=== PATIENT | male | born 1990 | race African-American/Black ===

== ENCOUNTER 2018-01-01 20:50 | Inpatient (IN) | payer OTHER ==
[~2018-01-01 20:50] MED LIST: PHOS667C PO
--- NOTE | 2018-01-01 23:45 | HHI.HP ---
[facility] Service Critical Care Medicine Primary Care Physician Unknown Admission Diagnosis Diagnosis: Travel History International Travel<30 Days: No Contact w/Intl Traveler <30 Da: No Traveled to Known Affected Are: No History of Present Illness 27-year-old gentleman with history of end-stage renal disease on dialysis Saturday, hypertensive nephrosclerosis, status post AV fistula placement, hypertension, history of lower extremity DVT, presented to [facility] with generalized weakness, malaise, lethargy, nausea and vomiting after heme is dialysis on Saturday. He denies any chest pain, fevers , cough, or shortness of breath. In the emergency department his labs were acceptable and he was transferred here for high level of care. Review of Systems Constitutional: DENIES: Diaphoretic episodes, Fatigue, Fever, Weight gain, Weight loss, Chills, Dizziness, Change in appetite, Night Sweats Endocrine: DENIES: Heat/cold intolerance, Polydipsia, Polyuria, Polyphagia Eyes: COMPLAINS OF: Blurred vision, Diplopia, Eye inflammation, Eye pain, Vision loss, Photosensitivity, Double Vision Ears, nose, mouth, throat: DENIES: Tinnitus, Hearing loss, Vertigo, Nasal discharge, Oral lesions, Throat pain, Hoarseness, Ear Pain, Running Nose, Epistaxis, Sinus Pain, Toothache, Odynophagia Cardiovascular: DENIES: Chest pain, Palpitations, Syncope, Dyspnea on Exertion , PND, Lower Extremity Edema, Orthopnea, Claudication Gastrointestinal: DENIES: Abdominal pain, Black stools, Bloody stools, Constipation, Diarrhea, Nausea, Vomiting, Difficulty Swallowing, Anorexia Genitourinary: DENIES: Sexual dysfunction, Urinary frequency, Urinary incontinence, Urgency, Hematuria, Dysuria, Nocturia, Penile Discharge, Testicular Pain, Testicular Swelling Musculoskeletal: DENIES: Joint pain, Muscle aches, Stiffness, Joint Swelling, Back pain, Neck pain Integumentary: DENIES: Abnormal pigmentation, Nail changes, Pruritus, Rash Hematologic/lymphatic: DENIES: Bruising, Lymphadenopathy Immunologic/allergic: DENIES: Eczema, Urticaria Neurologic: DENIES: Abnormal gait, Headache, Localized weakness, Paresthesias, Seizures, Speech Problems, Tremor, Poor Balance Psychiatric: DENIES: Anxiety, Confusion, Mood changes, Depression, Hallucinations, Agitation, Suicidal Ideation, Homicidal Ideation, Delusions Past Family Social History Allergies: Coded Allergies: ceftazidime (Unverified Allergy, Intermediate, RASH, 05/21/17) vancomycin (Verified Allergy, Unknown, 01/01/18) Past Medical History End-stage renal disease on dialysis Saturday Hypertension Past Surgical History HD Fistula placement Reported Medications Reported Meds & Active Scripts Active Reported Phoslo (Calcium Acetate) 667 Mg Cap 667 Mg PO TID Active Ordered Medications Current Medications Medications (Trade) Dose Ordered Sig/Eda Route PRN Reason Start Time Stop Time Status Last Admin Dose Admin Sodium Chloride (NS Flush) 2 ml UNSCH PRN IV FLUSH FLUSH AFTER USING IV ACCESS 01/02/18 00:45 Sodium Chloride (NS Flush) 2 ml BID IV FLUSH 01/02/18 09:00 Acetaminophen (Tylenol) 650 mg Q6H PRN PO PAIN 1-5 AND/OR FEVER >101F 01/02/18 00:45 Hydromorphone HCl (Dilaudid Pf Inj) 1 mg Q4H PRN IV PUSH PAIN SCALE 6 TO 10 01/02/18 00:45 Famotidine (Pepcid Inj) 20 mg Q12HR IV PUSH 01/02/18 09:00 Ondansetron HCl (Zofran Inj) 4 mg Q6H PRN IV PUSH NAUSEA OR VOMITING 01/02/18 00:45 Temazepam (Restoril) 15 mg HS PRN PO INSOMNIA 01/02/18 00:45 Albuterol/ Ipratropium (Duoneb Neb) 1 ampule Q2HR NEB PRN INH WHEEZING 01/02/18 00:45 Miscellaneous Information 1 Q361D XX 01/02/18 00:45 Chlorhexidine Gluconate (Chlorhexidine 2% Cloth) 3 pack Taper DAILY@04 TOP 01/02/18 04:00 12/29/18 03:59 Chlorhexidine Gluconate (Chlorhexidine 2% Cloth) 3 pack UNSCH PRN TOP HYGIENIC CARE 01/02/18 00:45 Senna/Docusate Sodium (Jammie-Colace) 1 tab BID PO 01/02/18 09:00 Magnesium Hydroxide (Milk Of Magnesia Liq) 30 ml Q12H PRN PO Mild constipation 01/02/18 00:45 Sennosides (Senokot) 17.2 mg Q12H PRN PO Moderate constipation 01/02/18 00:45 Bisacodyl (Dulcolax Supp) 10 mg DAILY PRN RECTAL SEVERE CONSITIPATION/ IF NPO 01/02/18 00:45 Lactulose (Lactulose Liq) 30 ml DAILY PRN PO SEVERE CONSITIPATION/ IF PO 01/02/18 00:45 Albumin Human 500 ml @ 250 mls/hr ONCE ONCE IV 01/02/18 01:00 01/02/18 02:59 Family History No Family history significant for renal disease Social History No tobacco, alcohol, or illicit drug abuse Physical Exam Vital Signs Vital Signs Date Time Temp Pulse Resp B/P (MAP) Pulse Ox O2 Delivery O2 Flow Rate FiO2 01/02/18 04:00 98.0 94 18 116/56 (76) 93 01/02/18 00:00 Room Air Physical Exam GENERAL: Well-nourished, well-developed patient. SKIN: Warm and dry. HEAD: Normocephalic. EYES: No scleral icterus. No injection or drainage. NECK: Supple, trachea midline. No JVD or lymphadenopathy. CARDIOVASCULAR: Regular rate and rhythm without murmurs, gallops, or rubs. RESPIRATORY: Breath sounds equal bilaterally. No accessory muscle use. GASTROINTESTINAL: Abdomen soft, non-tender, nondistended. MUSCULOSKELETAL: No cyanosis, or edema. BACK: Nontender without obvious deformity. NEURO EXAM: GCS: 15 Mental Status: The patient is alert and oriented to person, place, and time with normal speech. Cranial Nerves: Visual acuity intact bilaterally. Visual reyes normal in all quadrants. Pupils are round, reactive to light. Extraocular movements are intact without ptosis. Hearing is normal bilaterally. Voice is normal. Tongue protrudes midline and moves symmetrically. Reflexes: Biceps, patellar, and Achilles are 2/4 bilaterally. No clonus. Sensation: Sensation is intact bilaterally to pain and light touch. Two-point discrimination is intact. Motor: Good muscle tone. Strength is 5/5 bilaterally. Cerebellar: [id number] and [id number] test normal bilaterally. Laboratory Laboratory Tests Test 01/01/18 23:31 01/02/18 03:48 Nasal Screen MRSA (PCR) MRSA NOT DETECTED White Blood Count 5.3 TH/MM3 Red Blood Count 2.82 MIL/MM3 Hemoglobin 7.9 GM/DL Hematocrit 24.1 % Mean Corpuscular Volume 85.3 FL Mean Corpuscular Hemoglobin 28.0 PG Mean Corpuscular Hemoglobin Concent 32.9 % Red Cell Distribution Width 16.9 % Platelet Count 193 TH/MM3 Mean Platelet Volume 8.0 FL Prothrombin Time 14.7 SEC Prothromb Time International Ratio 1.5 RATIO Activated Partial Thromboplast Time 32.5 SEC Blood Urea Nitrogen 59 MG/DL Creatinine 17.27 MG/DL Random Glucose 96 MG/DL Total Protein 7.6 GM/DL Albumin 3.9 GM/DL Calcium Level 8.6 MG/DL Phosphorus Level 5.4 MG/DL Magnesium Level 2.2 MG/DL Alkaline Phosphatase 50 U/L Aspartate Amino Transf (AST/SGOT) 8 U/L Alanine Aminotransferase (ALT/SGPT) 15 U/L Total Bilirubin 0.5 MG/DL Sodium Level 133 MEQ/L Potassium Level 4.5 MEQ/L Chloride Level 97 MEQ/L Carbon Dioxide Level 22.1 MEQ/L Anion Gap 14 MEQ/L Estimat Glomerular Filtration Rate 4 ML/MIN Caprini VTE Risk Assessment Caprini VTE Risk Assessment: Mod/High Risk (score >= 2) Caprini Risk Assessment Model Point Value = 1 Point Value = 2 Point Value = 3 Point Value = 5 Age 41-60 Minor surgery BMI > 25 kg/m2 Swollen legs Varicose veins or History of unexplained or recurrent spontaneous Oral contraceptives or hormone replacement Sepsis (< 1 month) Serious lung disease, including pneumonia (< 1 month) Abnormal pulmonary function Acute myocardial infarction Congestive heart failure (< 1 month) History of inflammatory bowel disease Medical patient at bed rest Age 61-74 Arthroscopic surgery Major open surgery (> 45 min) Laparoscopic surgery (> 45 min) Malignancy Confined to bed (> 72 hours) Immobilizing plaster cast Central venous access Age >= 75 History of VTE Family history of VTE Factor V Leiden Prothrombin [id number] Lupus anticoagulant Anticardiolipin antibodies Elevated serum homocysteine Heparin-induced thrombocytopenia Other congenital or acquired thrombophilia Stroke (< 1 month) Elective arthroplasty Hip, pelvis, or leg fracture Acute spinal cord injury (< 1 month) Prophylaxis Regimen Total Risk Factor Score Risk Level Prophylaxis Regimen 0-1 Low Early ambulation 2 Moderate Order ONE of the following: *Sequential Compression Device (SCD) *Heparin 5000 units SQ BID 3-4 Higher Order ONE of the following medications: *Heparin 5000 units SQ TID *Enoxaparin/Lovenox 40 mg SQ daily (WT < 150 kg, CrCl > 30 mL/min) *Enoxaparin/Lovenox 30 mg SQ daily (WT < 150 kg, CrCl > 10-29 mL/min) *Enoxaparin/Lovenox 30 mg SQ BID (WT < 150 kg, CrCl > 30 mL/min) AND/OR *Sequential Compression Device (SCD) 5 or more Highest Order ONE of the following medications: *Heparin 5000 units SQ TID (Preferred with Epidurals) *Enoxaparin/Lovenox 40 mg SQ daily (WT < 150 kg, CrCl > 30 mL/min) *Enoxaparin/Lovenox 30 mg SQ daily (WT < 150 kg, CrCl > 10-29 mL/min) *Enoxaparin/Lovenox 30 mg SQ BID (WT < 150 kg, CrCl > 30 mL/min) AND *Sequential Compression Device (SCD) Assessment and Plan Assessment and Plan End-stage renal disease - Hemodialysis per nephrology Hematuria - Post Ozuna placement - Irrigation - Urology consultation Anemia - Monitor H&H - Transfuse for hemoglobin less than 7 Hypertension - Currently hypotensive - Hold all antihypertensive meds Hypotension - IV albumin - Gentle IV hydration DVT GI prophylaxis - Teds SCDs - Subcutaneous heparin - Early aggressive mobilization - Pepcid Critical Care: The total critical care time was 35 minutes. Time to perform other separately billable procedures was not included in the critical care time. Marquise Peña MD Jan 01, 2018 11:45 pm
[2018-01-02] VITALS (11 sets, daily range): BP systolic 67–138; BP diastolic 32–63; PULSE 80–152; RESP 14–28; TEMP 98–98.4; O2SAT 69–100
[2018-01-02] MEDS ORDERED: TEMAZEPAM 15 MG CAP PO PRN (00:45)
[2018-01-02] MEDS ORDERED: ONDANSETRON HCL 4 MG/2 ML VIAL IV PUSH PRN ×2 (00:45→09:00)
[2018-01-02] MEDS ORDERED: SODIUM CHLORIDE 0.9% FLUSH 10 ML FLUSH IV FLUSH PRN ×2 (00:45→09:00)
[2018-01-02] MEDS ORDERED: ACETAMINOPHEN 325 MG TAB PO PRN ×2 (00:45→09:00)
[2018-01-02] MEDS ORDERED: SENNOSIDES 8.6 MG TAB PO PRN (00:45)
[2018-01-02] MEDS ORDERED: MAGNESIUM HYDROXIDE SUSP 30 ML CUP PO PRN (00:45)
[2018-01-02] MEDS ORDERED: HYDROmorphone HCL PF 2 MG/ML VIAL IV PUSH PRN (00:45)
[2018-01-02] MEDS ORDERED: BISACODYL 10 MG SUPP RECTAL PRN (00:45)
[2018-01-02] MEDS ORDERED: MISCELLANEOUS NURSING INFORMATION XX SCH (00:45)
[2018-01-02] MEDS ORDERED: CHLORHEXIDINE GLUCONATE 2 % 1 PACK (2 CLOTHS) TOP PRN (00:45)
[2018-01-02] MEDS ORDERED: RESP: ALBUTEROL 2.5 MG/IPRATROPIUM 0.5 MG NEB (PRN) INH (00:45)
[2018-01-02] MEDS ORDERED: LACTULOSE SYRUP 20 GM/30 ML CUP PO PRN (00:45)
[2018-01-02] MEDS ORDERED: ALBUMIN 5% INJ 500 ML IV ONE ×2 (01:00→15:30)
[2018-01-02] MEDS ORDERED: ALBUMIN 5% INJ 500 ML IV SCH (01:00)
[2018-01-02] MEDS ORDERED: CHLORHEXIDINE GLUCONATE 2 % 1 PACK (2 CLOTHS) TOP SCH (04:00)
[2018-01-02 04:06] LABS: HEMATOCRIT 24.1 % (39.0-51.0); HEMOGLOBIN 7.9 GM/DL (13.0-17.0); MEAN CELL VOLUME 85.3 FL (80.0-100.0); MEAN CORPUSCULAR HGB CONC 32.9 % (32.0-36.0); PLATELET COUNT 193 TH/MM3 (150-450); RED BLOOD COUNT 2.82 MIL/MM3 (4.50-5.90); RED CELL DISTRIBUTION WIDTH 16.9 % (11.6-17.2); WHITE BLOOD COUNT 5.3 TH/MM3 (4.0-11.0)
[2018-01-02 04:16] LABS: INTERNATIONAL NORMALIZED RATIO 1.5 RATIO; PROTHROMBIN TIME - PATIENT 14.7 SEC (9.8-11.6)
[2018-01-02 04:32] LABS: ALBUMIN 3.9 GM/DL (3.4-5.0); AST (GOT) 8 U/L (15-37); BICARBONATE 22.1 MEQ/L (21.0-32.0); BLOOD UREA NITROGEN 59 MG/DL (7-18); CALCIUM 8.6 MG/DL (8.5-10.1); CHLORIDE 97 MEQ/L (98-107); GLOMERULAR FILTRATION RATE 4 ML/MIN (>89); GLUCOSE,RANDOM 96 MG/DL (74-106); MAGNESIUM 2.2 MG/DL (1.5-2.5); SODIUM (NA) 133 MEQ/L (136-145)
[2018-01-02 04:34] LABS: ALT (GPT) 15 U/L (12-78); PHOSPHORUS 5.4 MG/DL (2.5-4.9)
[2018-01-02 04:36] LABS: ALKALINE PHOSPHATASE 50 U/L (45-117); TOTAL BILIRUBIN ADULT 0.5 MG/DL (0.2-1.0); TOTAL PROTEIN 7.6 GM/DL (6.4-8.2)
[2018-01-02 04:48] LABS: CREATININE 17.27 MG/DL (0.60-1.30)
--- NOTE | 2018-01-02 08:39 | HHI.CCPN ---
Subjective Remarks/Hospital Course 27-year-old gentleman with history of end-stage renal disease on dialysis 5 times a week with home hemodialysis, hypertensive nephrosclerosis, right IJ tunneled cuffed catheter with current left femoral permacath, hypertension, history of lower extremity DVT, recurrent hematuria and seizure disorder, presented to [facility] with generalized weakness, malaise, lethargy , nausea and vomiting after heme is dialysis on Saturday. Patient had hematuria and was seen by urology at that facility underwent cystoscopy with irrigation of bladder. Continues to have hematuria. He was transferred for emergency evaluation to the ICU at [facility] for nephrology evaluation. No indication for emergent hemodialysis. He denies any chest pain, fevers, cough, or shortness of breath. Subjective 01/02: Hemodynamically stable. No issues overnight. Patient with blood from Ozuna requesting continuous bladder irrigations. Patient states he also takes levetiracetam intermittently when he has seizures with low blood pressure but he does not know the dosage. Objective Vital Signs Date Time Temp Pulse Resp B/P (MAP) Pulse Ox O2 Delivery O2 Flow Rate FiO2 01/02/18 04:00 98.0 94 18 116/56 (76) 93 01/02/18 00:00 Room Air Intake and Output 01/02/18 01/02/18 01/03/18 08:00 16:00 00:00 Intake Total 2360 ml Output Total 50 ml Balance 2310 ml Result Diagram: 01/02/18 0348 01/02/18 0348 Objective Remarks GENERAL: 27-year-old male currently resting in bed in no acute distress SKIN: Warm and dry. HEAD: Normocephalic. EYES: No scleral icterus. No injection or drainage. NECK: Supple, trachea midline. No JVD or lymphadenopathy. CARDIOVASCULAR: Regular rate and rhythm. S1, S3 no S4 without murmur RESPIRATORY: Breath sounds equal bilaterally. No accessory muscle use. GASTROINTESTINAL: Abdomen soft, non-tender, nondistended. MUSCULOSKELETAL: No significant peripheral edema NEURO EXAM: Cranial nerves II through XII grossly intact. Strength is equal symmetric. Normal sensation Urinary Catheter: Yes Assessment to: Continue Ozuna insert reason: Obstruction/Retention Vascular Central Line Catheter: No Assessment to: Continue A/P Assessment and Plan Neuro/Psych: Seizure disorder NOS Acetaminophen 650 mg p.o. every 6 hours as needed pain 1 through 5/fever Hydromorphone 1 mg IV every 4 hours as needed pain 6 or 10 Melatonin 5 mg at night as needed insomnia Continue levetiracetam at 250 mg p.o. twice daily seizure CV: History of hypertension Received colloid overnight due to hypotension. Patient states he does not take scheduled anti-hypertensive medications Medicine reconciliation Resp: Nasal cannula to maintain saturations greater than or equal to 92% Incentive spirometry while awake Albuterol nebs every 2 hours as needed dyspnea GI: Renal diet Famotidine for GI prophylaxis Docusate sodium/senna 1 tablet twice daily for bowel regimen : Hematuria Maintain Ozuna Urology consult by overnight print shop stenographer. Continue continuous bladder irrigations Endo: Sliding scale insulin to maintain euglycemia Renal: End-stage renal disease on hemodialysis Saturday/Saturday/Saturday Heme: Normocytic anemia Elevated INR/PTT Monitor CBC daily. Follow trends ID: Started on Levaquin renally dosed for hematuria UA, blood cultures 2 and sputum pending FEN: Hyponatremia Hyperphosphatemia Continue calcium acetate 667 mg p.o. 3 times daily MSK: PT/OT evaluate and treat Level 2 follow-up Patient is stable from a critical care medicine standpoint. Assign care to hospitalist in a.m. 01/03. Transfer from ICU. Addendum 01/02: Throughout the day patient was hemodynamically stable and denied complaints. Concerned about "shots" in the abdomen that might be causing bleeding/clots. Noted that earlier in the day I did order CVA over the patient refused an intermittent bladder irrigations with saline by RN were performed. Approximately 4 PM, patient with large amount of clot from penis after hemodialysis was completed. 400 cc removed. Patient became hypotensive and "lightheaded". Patient appeared to have a seizure and became unresponsive. Airway was kept open and decision was made to emergently intubated. Patient received 2 mg of midazolam and 50 mg rocuronium.. Patient had one peripheral IV access. Prior to this, PRBCs and FFP were ordered along with stat CBC and coags. In the interim, crystalloid and colloid bolus and vasopressors including phenylephrine and norepinephrine were started. Central line was attempted in the left femoral region however unable to pass a guidewire passed 15 cm of procedure stopped. Hemodialysis catheter was used for medications including vasopressors, fluid boluses and transfusion total of 10 PRBCs, 2 FFP, 1 platelet 1 cryo.. Initial hemoglobin after 4 units PRBCs was 6.6. Due to instability patient. We are unable to image the patient using CAT scan. General surgery notified emergently. Dr. Logan saw the patient during active resuscitation and will take the patient to the OR for emergent laparoscopy. He discussed with the mother and father in detail. Dr. Lainez/Urology was notified. He placed a new Ozuna catheter and irrigated the bladder until clots were all removed. Notified mother Yonny Dan and father Masoud Dan their son's current sudden critically ill and unstable medical condition. The clinical situation but was described to the family in detail and they expressed understanding. Josh Weinstein MD Jan 02, 2018 08:39
[2018-01-02] MEDS ORDERED: MELATONIN 5 MG TAB PO PRN (08:45)
[2018-01-02] MEDS ORDERED: RESP: ALBUTEROL 2.5 MG/3 ML NEB (PRN) NEB (08:45)
[2018-01-02] MEDS ORDERED: SODIUM CHLOR 0.9% 1000 ML INJ 1,000 ML OTHER PRN ×2 (08:50)
[2018-01-02] MEDS ORDERED: SODIUM CHLOR 0.9% 1000 ML INJ 1,000 ML IV PRN (08:50)
--- NOTE | 2018-01-02 08:56 | PD.CONS ---
HPI Service Nephrology Consult Requested By Dr. Peña Reason for Consult ESRD Primary Care Physician Unknown History of Present Illness Patient is a 27-year-old gentleman with history of ESRD, hypertensive nephrosclerosis, seizures, hx of kidney transplant, and hypertension. Presented to [facility] with abdominal pain and clif hematuria. Which he reports has been going on for 3 days. He was found to have a distended bladder and was seen by Urology at [place]. Per records there was not a business ethics professor available so he was transferred to [place] for higher level of care. Nephrology was consulted for management of Hemodialysis. His Clinical Editor is Dr. Crandall from [facility]. He currently does HD at home 5 X week via HD in left groin. He normally makes very minimal urine. He last HD was on Saturday at [facility]. (Asia Gonzalez) Review of Systems Constitutional: COMPLAINS OF: Fatigue Gastrointestinal: COMPLAINS OF: Nausea Genitourinary: COMPLAINS OF: Hematuria Psychiatric: COMPLAINS OF: Anxiety (Asia Gonzalez) Past Family Social History Allergies: Coded Allergies: ceftazidime (Unverified Allergy, Intermediate, RASH, 05/21/17) vancomycin (Verified Allergy, Unknown, 01/01/18) Past Medical History HTN Kidney transplant ESRD Seizures Metabolic bone disorder Past Surgical History Kidney Transplant 12 years ago Active Ordered Medications Current Medications Medications (Trade) Dose Ordered Sig/Eda Route Start Time Stop Time Status Last Admin (NS Flush) 2 ml UNSCH PRN IV FLUSH 01/02/18 00:45 (NS Flush) 2 ml BID IV FLUSH 01/02/18 09:00 (Tylenol) 650 mg Q6H PRN PO 01/02/18 00:45 (Dilaudid Pf Inj) 1 mg Q4H PRN IV PUSH 01/02/18 00:45 (Zofran Inj) 4 mg Q6H PRN IV PUSH 01/02/18 00:45 Miscellaneous Information 1 Q361D XX 01/02/18 00:45 01/02/18 00:45 (Chlorhexidine 2% Cloth) 3 pack Taper DAILY@04 TOP 01/02/18 04:00 12/29/18 03:59 (Chlorhexidine 2% Cloth) 3 pack UNSCH PRN TOP 01/02/18 00:45 (Jammie-Colace) 1 tab BID PO 01/02/18 09:00 (Milk Of Magnesia Liq) 30 ml Q12H PRN PO 01/02/18 00:45 (Senokot) 17.2 mg Q12H PRN PO 01/02/18 00:45 (Dulcolax Supp) 10 mg DAILY PRN RECTAL 01/02/18 00:45 (Lactulose Liq) 30 ml DAILY PRN PO 01/02/18 00:45 (Keppra) 250 mg Q12HR PO 01/02/18 09:00 (Albuterol Neb) 2.5 mg Q2HR NEB PRN NEB 01/02/18 08:45 UNV (Melatonin) 5 mg HS PRN PO 01/02/18 08:45 UNV Social History Denies tobacco and ETOH use Uses marijuana daily lives with family in [facility] Disabled (PapitochrisAsiadejon RODRIGUEZ) Physical Exam Vital Signs Vital Signs Date Time Temp Pulse Resp B/P (MAP) Pulse Ox O2 Delivery O2 Flow Rate FiO2 01/02/18 04:00 98.0 94 18 116/56 (76) 93 01/02/18 04:00 97 01/02/18 02:00 110 01/02/18 00:00 118 01/02/18 00:00 98.0 118 14 82/49 (60) 93 01/02/18 00:00 98 Room Air Physical Exam GENERAL: Alert and oriented SKIN: Warm and dry. HD cath in left femoral region HEAD: Normocephalic. EYES: No scleral icterus. No injection or drainage. NECK: Supple, trachea midline. No JVD or lymphadenopathy. CARDIOVASCULAR: Regular rate and rhythm without murmurs, gallops, or rubs. RESPIRATORY: Breath sounds equal bilaterally. No accessory muscle use. GASTROINTESTINAL: Abdomen soft, non-tender, nondistended. GENITOURINARY: Indwelling betts catheter: hematuria present MUSCULOSKELETAL: No cyanosis, or edema. BACK: Nontender without obvious deformity. No CVA tenderness. Laboratory Laboratory Tests Test 01/01/18 23:31 01/02/18 03:48 Nasal Screen MRSA (PCR) MRSA NOT DETECTED White Blood Count 5.3 Red Blood Count 2.82 Hemoglobin 7.9 Hematocrit 24.1 Mean Corpuscular Volume 85.3 Mean Corpuscular Hemoglobin 28.0 Mean Corpuscular Hemoglobin Concent 32.9 Red Cell Distribution Width 16.9 Platelet Count 193 Mean Platelet Volume 8.0 Prothrombin Time 14.7 Prothromb Time International Ratio 1.5 Activated Partial Thromboplast Time 32.5 Blood Urea Nitrogen 59 Creatinine 17.27 Random Glucose 96 Total Protein 7.6 Albumin 3.9 Calcium Level 8.6 Phosphorus Level 5.4 Magnesium Level 2.2 Alkaline Phosphatase 50 Aspartate Amino Transf (AST/SGOT) 8 Alanine Aminotransferase (ALT/SGPT) 15 Total Bilirubin 0.5 Sodium Level 133 Potassium Level 4.5 Chloride Level 97 Carbon Dioxide Level 22.1 Anion Gap 14 Estimat Glomerular Filtration Rate 4 (Asia Gonzalez) Result Diagram: 01/02/1834701/02/18347 Assessment and Plan Problem List: (1) ESRD (end stage renal disease) on dialysis ICD Codes: N18.6 - End stage renal disease; Z99.2 - Dependence on renal dialysis Plan: Patient is ESRD on HD 5 X week at home via HD in left femoral region His last dialysis was on Saturday at [facility] Hx kidney transplant Plan Dialysis planned for today then plan will be for HD T/TH/SAT Epogen with dialysis Will resume PhosLo and Sensipar (2) Hematuria ICD Codes: R31.9 - Hematuria, unspecified Plan: Maintain indwelling betts catheter Urology is consulted (3) HTN (hypertension) ICD Codes: I10 - Essential (primary) hypertension Plan: Blood pressure has been low all blood pressure medication on hold (4) Seizures ICD Codes: R56.9 - Unspecified convulsions Plan: Keppra resumed (Asia Gonzalez) Problem List: (1) ESRD (end stage renal disease) on dialysis ICD Codes: N18.6 - End stage renal disease; Z99.2 - Dependence on renal dialysis Plan: Patient is ESRD on HD 5 X week at home via HD in left femoral region His last dialysis was on Saturday at [facility] Hx kidney transplant Plan Dialysis planned for today then plan will be for HD T/TH/SAT Epogen with dialysis Will resume PhosLo and Sensipar. Patient seen and examined during HD. BP on lower side. Not removing much fluid. He is on Home HD, will continue HD 3 times a week and as needed. (2) Hematuria ICD Codes: R31.9 - Hematuria, unspecified Plan: Maintain indwelling betts catheter Urology is consulted (3) HTN (hypertension) ICD Codes: I10 - Essential (primary) hypertension Plan: Blood pressure has been low all blood pressure medication on hold (4) Seizures ICD Codes: R56.9 - Unspecified convulsions Plan: Keppra resumed (Doris Carmona MD) Problem Qualifiers (1) Hematuria: Qualified Codes: R31.1 - Benign essential microscopic hematuria Asia Gonzalez Jan 02, 2018 08:56 Doris Carmona MD Jan 02, 2018 17:57
[2018-01-02] MEDS ORDERED: HEPARIN SODIUM - IV 10,000 UNITS/10 ML VIAL PRN (09:00)
[2018-01-02] MEDS ORDERED: NITROGLYCERIN 0.4 MG SL 25 TABS/BTL SL PRN (09:00)
[2018-01-02] MEDS ORDERED: ALBUMIN 25% INJ 100 ML IV PRN (09:00)
[2018-01-02] MEDS ORDERED: EPOETIN ALFA 10,000 UNITS/ML VIAL IV PUSH PRN (09:00)
[2018-01-02] MEDS ORDERED: HEPARIN SODIUM - IV 10,000 UNITS/10 ML VIAL IV FLUSH PRN (09:00)
[2018-01-02] MEDS ORDERED: GENTAMICIN SULFATE 20 MG/2 ML VIAL OTHER PRN (09:00)
[2018-01-02] MEDS ORDERED: SODIUM CHLORIDE 0.9% FLUSH 10 ML FLUSH IV FLUSH SCH (09:00)
[2018-01-02] MEDS ORDERED: DOCUSATE SODIUM 50 MG/SENNA 8.6 MG TAB PO SCH (09:00)
[2018-01-02] MEDS ORDERED: cloNIDine HCL 0.1 MG TAB PO PRN (09:00)
[2018-01-02] MEDS ORDERED: MANNITOL 12.5 GM/50 ML VIAL IV PRN (09:00)
[2018-01-02] MEDS ORDERED: levETIRAcetam 250 MG TAB PO SCH (09:00)
[2018-01-02] MEDS ORDERED: FAMOTIDINE 20 MG/2 ML VIAL IV PUSH SCH (09:00)
[2018-01-02] MEDS ORDERED: diphenhydrAMINE HCL 25 MG CAP PO PRN (09:00)
[2018-01-02] MEDS ORDERED: LEVOFLOXACIN 500 MG PREMIX INJ 100 ML IV SCH (09:00)
[2018-01-02] MEDS ORDERED: GELATIN 12 MM/7 MM FOAM TOP PRN (09:00)
[2018-01-02] MEDS ORDERED: NITROGLYCERIN 2% OINT 1 GM PACKET TOPICAL PRN (09:15)
[2018-01-02] MEDS ORDERED: CALCIUM CHLORIDE 10% SOLN 1 GRAM/10 ML SYR IV ONE (12:00)
[2018-01-02] MEDS ORDERED: EPINEPHrine HCL (1:1000) 30 MG/30 ML VIAL IV ONE (12:00)
[2018-01-02] MEDS ORDERED: PHENYLEPH/NS 1000 MCG/10 ML SYR IV ONE (12:00)
[2018-01-02] MEDS: CALCIUM ACETATE 667 MG CAP PO SCH ×2 (13:00→18:00)
[2018-01-02] MEDS ORDERED: TERBUTALINE INJ 1 MG/ML AMP SQ PRN ×2 (15:30→17:15)
[2018-01-02] MEDS ORDERED: PHENYLEPHRINE INJ 160 MG in DEXTROSE 5% IN WATE 500 ML INJ 484 ML IV PRN ×4 (15:30→17:45)
[2018-01-02] MEDS ORDERED: PHENYLEPHRINE HCL 10 MG/ML VIAL ONE ×3 (15:35→16:24)
[2018-01-02] MEDS ORDERED: MIDAZOLAM HCL 5 MG/ML VIAL (1 ML) ONE (15:45)
[2018-01-02] MEDS ORDERED: ROCURONIUM INJ 50 MG/5 ML VIAL ONE (15:46)
[2018-01-02] MEDS ORDERED: ATROPINE SULFATE 1 MG/10 ML SYRINGE ONE (16:01)
[2018-01-02] MEDS ORDERED: SODIUM BICARBONATE 8.4% INJ 50 MEQ/50 ML SYR ONE ×4 (16:07→18:17)
[2018-01-02] MEDS ORDERED: NOREPINEPHRINE-DEXTROSE DRIP 250 ML IV ONE ×3 (16:14→17:34)
[2018-01-02 16:46] LABS: HEMATOCRIT 21.7 % (39.0-51.0)
[2018-01-02 16:51] LABS: HEMOGLOBIN 6.6 GM/DL (13.0-17.0)
[2018-01-02] MEDS ORDERED: NOREPINEPHRINE INJ 4 MG in SODIUM CHLOR 0.9% 250 ML INJ 246 ML IV PRN (17:15)
--- NOTE | 2018-01-02 17:34 | PD.CONS ---
cc: Jimmie Logan MD [facility] Service CONSULTATION NOTE FOR SURGICAL ATTENDING, DR. JIMMIE LOGAN General Surgery Consult Requested By Dr. Weinstein Reason for Consult Abdominal distention Primary Care Physician Unknown History of Present Illness This is a 27 year old chronically ill male with a past medical history of hypertensive nephrosclerosis, seizures, hypertension, failed renal transplant and has ESRD on hemodialysis through a LEFT Permacath catheter. The patient presented to [facility] for hematuria. Per reports, the patient had a cystoscopy but those records are not available to me at this time. The patient was transferred up to [place] for emergency hemodialysis. The patient arrived from [place] with a Ozuna catheter in place. This morning, the patient was going to be started on CBI but he refused to have the existing catheter changed to a three way catheter. The patient was doing fine during dialysis but toward the end, he started to develop, per report, abdominal pain. His pressure began to decrease and it was noted that the patient had about 400 cc of blood flowing from catheter. The patient had a cardiopulmonary arrest and was emergently intubated and started on vasopressors. Dr. Logan was called STAT to the bedside for evaluation of an acute abdomen. Review of Systems ROS Limitations: Clinical Condition, Intubated Past Family Social History Past Medical History ESRD Hypertensive nephrosclerosis Seizures Hypertension Past Surgical History Renal transplant (since has failed) Reported Medications Only reported medication is Phoslo Allergies: Coded Allergies: ceftazidime (Unverified Allergy, Intermediate, RASH, 05/21/17) vancomycin (Verified Allergy, Unknown, 01/01/18) Active Ordered Medications Current Medications Medications (Trade) Dose Ordered Sig/Eda Route Start Time Stop Time Status Last Admin (NS Flush) 2 ml UNSCH PRN IV FLUSH 01/02/18 00:45 (NS Flush) 2 ml BID IV FLUSH 01/02/18 09:00 01/02/18 09:54 (Tylenol) 650 mg Q6H PRN PO 01/02/18 00:45 (Dilaudid Pf Inj) 1 mg Q4H PRN IV PUSH 01/02/18 00:45 01/02/18 09:53 (Zofran Inj) 4 mg Q6H PRN IV PUSH 01/02/18 00:45 Miscellaneous Information 1 Q361D XX 01/02/18 00:45 01/02/18 00:45 (Chlorhexidine 2% Cloth) 3 pack Taper DAILY@04 TOP 01/02/18 04:00 12/29/18 03:59 (Chlorhexidine 2% Cloth) 3 pack UNSCH PRN TOP 01/02/18 00:45 (Jammie-Colace) 1 tab BID PO 01/02/18 09:00 01/02/18 09:53 (Milk Of Magnesia Liq) 30 ml Q12H PRN PO 01/02/18 00:45 (Senokot) 17.2 mg Q12H PRN PO 01/02/18 00:45 (Dulcolax Supp) 10 mg DAILY PRN RECTAL 01/02/18 00:45 (Lactulose Liq) 30 ml DAILY PRN PO 01/02/18 00:45 (Keppra) 250 mg Q12HR PO 01/02/18 09:00 01/02/18 09:54 (Albuterol Neb) 2.5 mg Q2HR NEB PRN NEB 01/02/18 08:45 (Melatonin) 5 mg HS PRN PO 01/02/18 08:45 Sodium Chloride 1,000 ml @ 0 mls/hr Q0M PRN OTHER 01/02/18 08:50 (Heparin Inj) 8,000 units UNSCH PRN IV FLUSH 01/02/18 09:00 Sodium Chloride 1,000 ml @ 200 mls/hr Q5H PRN IV 01/02/18 08:50 Sodium Chloride 1,000 ml @ 0 mls/hr Q0M PRN OTHER 01/02/18 08:50 (Mannitol Inj) 12.5 gm UNSCH PRN IV 01/02/18 09:00 Albumin Human 100 ml @ 60 mls/hr UNSCH PRN IV 01/02/18 09:00 01/02/18 15:36 (NS Flush) 5 ml UNSCH PRN IV FLUSH 01/02/18 09:00 (Heparin Inj) UNSCH PRN .XX 01/02/18 09:00 01/02/18 13:17 (Gentamicin Inj) 20 mg UNSCH PRN OTHER 01/02/18 09:00 01/02/18 13:17 (Zofran Inj) 4 mg UNSCH PRN IV PUSH 01/02/18 09:00 (Tylenol) 650 mg UNSCH PRN PO 01/02/18 09:00 (Benadryl) 25 mg UNSCH PRN PO 01/02/18 09:00 (Nitrostat Sl) 0.4 mg UNSCH PRN SL 01/02/18 09:00 (Catapres) 0.1 mg UNSCH PRN PO 01/02/18 09:00 (Epogen Inj) 10,000 units UNSCH PRN IV PUSH 01/02/18 09:00 01/02/18 13:17 (Gelfoam 12 Mm/7 Mm Top) 1 foam UNSCH PRN TOP 01/02/18 09:00 Levofloxacin/ Dextrose 100 ml @ 100 mls/hr Q48H IV 01/02/18 09:00 01/02/18 09:53 (Phoslo) 667 mg TID PO 01/02/18 13:00 (Nitroglycerin 2% Oint) 2 inch Q6HR PRN TOPICAL 01/02/18 09:15 (Sensipar) 30 mg DAILY PO 01/03/18 09:00 Albumin Human 500 ml @ 250 mls/hr ONCE ONCE IV 01/02/18 15:30 01/02/18 17:29 Phenylephrine HCl 160 mg/Dextrose 500 ml @ 7.5 mls/hr TITRATE PRN IV 01/02/18 15:30 (Brethine Inj) 1 mg UNSCH PRN SQ 01/02/18 15:30 Family History Unable to obtain Social History Unable to obtain Physical Exam Vital Signs Vital Signs Date Time Temp Pulse Resp B/P (MAP) Pulse Ox O2 Delivery O2 Flow Rate FiO2 01/02/18 16:40 78 100 01/02/18 16:06 100 100 01/02/18 12:00 98.1 82 28 138/59 (85) 100 01/02/18 08:00 98.0 92 15 103/63 (76) 100 01/02/18 07:00 94 01/02/18 07:00 97 Room Air 01/02/18 04:00 98.0 94 18 116/56 (76) 93 01/02/18 04:00 97 01/02/18 02:00 110 01/02/18 00:00 118 01/02/18 00:00 98.0 118 14 82/49 (60) 93 01/02/18 00:00 98 Room Air Physical Exam GENERAL: 27 year old male in critical condition orally intubated on mechanical ventilation. SKIN: Warm and dry. HEAD: Atraumatic. Normocephalic. EYES: Not able to access. ENT: No nasal bleeding or discharge. Mucous membranes pink and moist. NECK: Trachea midline. CARDIOVASCULAR: Regular rate and rhythm. RESPIRATORY: No accessory muscle use. Clear to auscultation. Breath sounds equal bilaterally. GASTROINTESTINAL: Abdomen distended; tight. Multiple well healed incisions over abdomen. MUSCULOSKELETAL: Extremities without clubbing, cyanosis, or edema. No obvious deformities. NEUROLOGICAL: Unable to examine. PSYCHIATRIC: Unable to examine. Laboratory Laboratory Tests Test 01/01/18 23:31 01/02/18 03:48 01/02/18 13:00 01/02/18 16:20 Nasal Screen MRSA (PCR) MRSA NOT DETECTED White Blood Count 5.3 Red Blood Count 2.82 Hemoglobin 7.9 Hematocrit 24.1 Mean Corpuscular Volume 85.3 Mean Corpuscular Hemoglobin 28.0 Mean Corpuscular Hemoglobin Concent 32.9 Red Cell Distribution Width 16.9 Platelet Count 193 Mean Platelet Volume 8.0 Prothrombin Time 14.7 Prothromb Time International Ratio 1.5 Activated Partial Thromboplast Time 32.5 Blood Urea Nitrogen 59 Creatinine 17.27 Random Glucose 96 Total Protein 7.6 Albumin 3.9 Calcium Level 8.6 Phosphorus Level 5.4 Magnesium Level 2.2 Alkaline Phosphatase 50 Aspartate Amino Transf (AST/SGOT) 8 Alanine Aminotransferase (ALT/SGPT) 15 Total Bilirubin 0.5 Sodium Level 133 Potassium Level 4.5 Chloride Level 97 Carbon Dioxide Level 22.1 Anion Gap 14 Estimat Glomerular Filtration Rate 4 Blood Gas Puncture Site RT FEMORAL Blood Gas Patient Temperature 98.6 Blood Gas HCO3 13 Blood Gas Base Excess -16.9 Blood Gas Oxygen Saturation 73 Arterial Blood pH 6.93 Arterial Blood Partial Pressure CO2 66 Arterial Blood Partial Pressure O2 56 Arterial Blood Oxygen Content 6.7 Arterial Blood Carboxyhemoglobin 0.2 Arterial Blood Methemoglobin 1.1 Blood Gas Hemoglobin 6.4 Oxygen Delivery Device VENTILATOR Blood Gas Ventilator Setting PRVC/14/500/+5/1.0 Blood Gas Inspired Oxygen 100 Test 01/02/18 16:30 Hemoglobin 6.6 Hematocrit 21.7 Date/Time Source Procedure Growth Status 01/02/18 12:49 Blood Peripheral Aerobic Blood Culture Pending Received 01/02/18 12:49 Blood Peripheral Anaerobic Blood Culture Pending Received Result Diagram: 01/02/18 1630 01/02/18 0348 Assessment and Plan Problem List: (1) Nontraumatic compartment syndrome of abdomen ICD Codes: M79.A3 - Nontraumatic compartment syndrome of abdomen Status: Acute (2) Anemia associated with acute blood loss ICD Codes: D62 - Acute posthemorrhagic anemia Status: Acute (3) Hypotension ICD Codes: I95.9 - Hypotension, unspecified Status: Acute (4) ESRD (end stage renal disease) on dialysis ICD Codes: N18.6 - End stage renal disease; Z99.2 - Dependence on renal dialysis (5) Respiratory failure ICD Codes: J96.90 - Respiratory failure, unspecified, unspecified whether with hypoxia or hypercapnia Status: Acute (6) Shock ICD Codes: R57.9 - Shock, unspecified Status: Acute Assessment and Plan 27 year old male s/p cardiopulmonary arrest; hematuria; acute distended abdomen -Plan for OR emergently -Consents signed and in the chart by parents -Discussed with parents -Dr. Lainez from Urology also consulted Discussed Condition With Dr. Desmond Arriola RN MrLourdes and Mrs. Dan (parents) Attending Statement CONSULTATION NOTE FOR SURGICAL ATTENDING, DR. JIMMIE LOGAN Patient has complex history Discussed with father and mother He is critically ill He has apparent abdominal compartment syndrome from resuscitation it is difficult to ventilate. I don't think we have time to do any other diagnostic tests be placed in the operating theater as soon as possible. This was discussed with Dr. Weinstein the manager corporate strategy Reviewed the case with Dr. Lainez the urologist as well I agree with above assessment and plan. The exam, history, and the medical decision-making described in the above note were completed with the assistance of the mid-level provider. I reviewed and agree with the findings presented. I attest that I had a [id number] encounter with the patient on the same day, and personally performed and documented my assessment and findings in the medical record. The following services were provided during this hospital visit: Chart data review, vital sign assessments/reviewing monitor data Review of consultations notes if present. Medication orders/review and/or management Ordering and/or reviewing lab tests Ordering and/or interpreting/reviewing x-rays and/or diagnostic studies Care of the patient and discussion of the patient with the care team Documentation time To help prompt me to consider important information that might be impacting today's encounter and assessment, information from prior notes written by myself or my colleagues may have been "brought forward/copy and pasted" into today's note. Yuki Oglesby/First Tyler RODRIGUEZ Jan 02, 2018 17:34 Jimmie Logan MD Jan 03, 2018 13:23
[2018-01-02] MEDS ORDERED: NOREPINEPHRINE INJ 16 MG in SODIUM CHLOR 0.9% 250 ML INJ 234 ML IV PRN (18:00)
[2018-01-02] MEDS ORDERED: NOREPINEPHRINE 16 MG/D5W 250 ML IV PRN ×2 (18:00)
--- NOTE | 2018-01-02 18:10 | PD.PROCEDR ---
Procedure Note Procedure DATE: 01/02/2018 PROCEDURE: Orotracheal intubation INDICATION: Acute hypoxemic respiratory failure, altered mental status DETAILS OF PROCEDURE The patient was placed in optimal position and preoxygenated with 100% FiO2 via bag valve mask. At the start oxygen saturation was 95%. The patient was administered 2 mg midazolam IV and 50 milligrams rocuronium IV. Patient had clenched teeth therefore a paralytic was provided. I entered the oropharynx with a size 4 laryngoscope blade and obtained a grade 3 view of the airway. On single attempt a size 8.0 cuffed endotracheal tube was passed through the vocal cords. Correct tube location was confirmed with end tidal CO2 detector and by auscultating over bilateral lung reyes. The endotracheal tube was secured with adhesive tape at a depth of 24 cm at the lips. The patient was connected to the ventilator. The patient tolerated the procedure well without any apparent complications. Oxygen saturations were maintained greater than 95% all times. STAT chest x-ray pending at time of dictation. Josh Weinstein MD Jan 02, 2018 18:10
[2018-01-02] MEDS ORDERED: CALCIUM CHLORIDE 10% SOLN 1 GRAM/10 ML SYR ONE ×2 (18:17→20:13)
[2018-01-02 18:18] LABS: BICARBONATE 24.9 MEQ/L (21.0-32.0); CALCIUM 7.2 MG/DL (8.5-10.1); CREATININE 7.86 MG/DL (0.60-1.30)
[2018-01-02 18:19] LABS: INTERNATIONAL NORMALIZED RATIO 1.5 RATIO
[2018-01-02] MEDS ORDERED: VASOPRESSIN INJ 40 UNITS in DEXTROSE 5% IN WATER 100ML INJ 98 ML IV SCH ×2 (18:28)
[2018-01-02 18:31] LABS: HEMATOCRIT 39.9 % (39.0-51.0); HEMOGLOBIN 12.2 GM/DL (13.0-17.0); MEAN CELL VOLUME 95.7 FL (80.0-100.0); MEAN CORPUSCULAR HEMOGLOBIN 29.3 PG (27.0-34.0); MEAN CORPUSCULAR HGB CONC 30.7 % (32.0-36.0); MEAN PLATELET VOLUME 8.9 FL (7.0-11.0); RED BLOOD COUNT 4.17 MIL/MM3 (4.50-5.90); RED CELL DISTRIBUTION WIDTH 16.6 % (11.6-17.2); WHITE BLOOD COUNT 2.7 TH/MM3 (4.0-11.0)
[2018-01-02 18:43] LABS: INTERNATIONAL NORMALIZED RATIO 1.5 RATIO; PROTHROMBIN TIME - PATIENT 14.9 SEC (9.8-11.6)
[2018-01-02] MEDS ORDERED: VASOPRESSIN 20 UNITS/ML VIAL ONE (18:46)
[2018-01-02 18:48] LABS: PLATELET COUNT 66 TH/MM3 (150-450)
[2018-01-02] MEDS ORDERED: HYDROCORTISONE SOD SUCCINATE 100 MG VIAL IV PUSH ONE (19:00)
[2018-01-02 19:18] LABS: ALBUMIN 2.4 GM/DL (3.4-5.0); BICARBONATE 16.8 MEQ/L (21.0-32.0); CALCIUM 7.4 MG/DL (8.5-10.1); CREATININE 7.97 MG/DL (0.60-1.30); DIRECT BILIRUBIN ADULT 0.2 MG/DL (0.0-0.2); INDIRECT BILIRUBIN 0.2 MG/DL (0.0-0.8); MAGNESIUM 2.1 MG/DL (1.5-2.5); PHOSPHORUS 9.9 MG/DL (2.5-4.9); TOTAL BILIRUBIN ADULT 0.4 MG/DL (0.2-1.0)
[2018-01-02 19:41] LABS: CALCIUM-PROTEIN CORRECTED 8.7 MG/DL (8.5-10.1); TOTAL PROTEIN 4.4 GM/DL (6.4-8.2)
[2018-01-02 20:11] LABS: CALCIUM-PROTEIN CORRECTED 8.6 MG/DL (8.5-10.1)
[2018-01-02] MEDS ORDERED: EPINEPHrine HCL PF/SF (1:1000) 1 MG/ML AMP I-OCULAR ONE (20:13)
--- NOTE | 2018-01-02 20:14 | RADRPT ---
EXAM DATE/TIME: 01/02/2018 19:05 [facility] COMPARISON: No previous studies available for comparison. INDICATIONS : Hypoxia. MEDICAL HISTORY : Unobtainable. SURGICAL HISTORY : Unobtainable. ENCOUNTER: Initial ACUITY: 1 day PAIN SCORE: Non-responsive. LOCATION: Bilateral chest FINDINGS: The ET tube and NG tube are well placed. There is a vascular stent seen in the right chest. There fabio ears be some narrowing of the upper aspect of the stent. Clips are seen in the left medial chest. The heart size is normal. The aortic arch is not well seen. The mediastinum is widened. This can be seen with supine portable images. There appears to be a drain over the left lower chest. There is a suspe cted lap band with metallic density seen over the lower chest. Metallic densities are seen over the l ower chest and upper abdomen. A significant pleural effusion or pneumothorax is not seen. CONCLUSION: 1. ET tube and NG tube are well placed. 2. Postsurgical changes with clips in the left medial chest and a drain and surgical material in the lower chest and upper abdomen. 3. The aortic arch is not well-defined. 4. Vascular stent seen on the right side with some narrowing of the upper aspect of the stent. Leonardo Nina MD on January 02, 2018 at 20:08 Board Certified Radiologist. This report was verified electronically.
[2018-01-03] MEDS ORDERED: CINACALCET HYDROCHLORIDE 30 MG TAB PO SCH (09:00)
--- NOTE | 2018-01-03 15:45 | MP ---
cc: Jimmie Logan MD,Abe Adam MD DATE OF OPERATION: PREOPERATIVE DIAGNOSES: 1. Abdominal compartment syndrome. 2. Massive hemorrhage from urinary bladder. 3. Renal failure. 4. On dialysis. 5. Respiratory failure. 6. Acidosis. 7. Acute anemia from massive blood loss through Ozuna. 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 Procedure Exploratory laparotomy Exploration of neobladder Attempted control of bleeding from neobladder with partial resection of neobladder Cardiopulmonary resuscitation ANESTHESIA: General. SURGEON: Jimmie Logan MD UROLOGIST: Abe Lainez MD INDICATION: This is an unfortunate young gentleman who was transferred here from an outside institution for urgent dialysis. He then began experiencing massive hemorrhage from his urinary bladder. He had massive blood transfusions and resuscitation. Unfortunately, he developed an abdominal compartment syndrome that left him acidotic and inability to ventilate. I was asked to see the patient because of his abdominal distention and obvious abdominal pathology. Urology was consulted for his hemorrhage from his bladder. I discussed with the mother and father. Apparently, he has had his bladder removed and they made a bladder out of his colon, and he had a urostomy from his appendix done over [address] Lainez and I conferred and plans were take him urgently to the operating room because of his clinical decline. DESCRIPTION OF PROCEDURE: The patient taken to the operating room and placed in the supine position. After prepping with Betadine, anesthesia was placing lines, he was getting massive blood transfusion. It is noted that he was massively swollen. His abdomen was very tight. We made an incision just below the xiphoid down to the umbilicus where he has had scar tissue. Immediate decompression of his massively dilated small bowel relieved some of his abdominal compartment syndrome. 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 The blood supply could be identified. This neobladder was massively distended. We could see the tenia to it. Originally, I thought this was dilated sigmoid colon, but we then confirmed that this was actually the neobladder. We made a small, about 3-4, cm incision along the tinea and massive blood with blood clot returned under pressure. We could see the Ozuna catheter as well. There was oozing from the mucosa throughout. We could see the appendiceal orifice where the urostomy was in the right lower quadrant. We were able to flush fluid through this. There was no bleeding from this. We were able to stay the bleeding from a very small vessel along the posterior wall. At this point, we then packed it to allow anesthesia to catch up on his fluids and blood products. It was noted that intra-abdominally, there was no bleeding. It was just massively distended small bowel from abdominal compartment syndrome as a result of his resuscitation that occurred in the ICU. While we were waiting for anesthesia to catch up on his fluids, the lap pad that we had packed in the neobladder became saturated with blood and vigorous bleeding occurred from very deep within this neobladder. We clamped across the blood supply to the neobladder that could be easily identified; however, this did not stay the bleeding and during the dissection of this neobladder to stay the bleeding, he arrested. We did chest compressions and did CPR. Anesthesia gave intravenous drugs. We had shocked him to try to get his heart to restart 3 or 4 times with no success. At this time, he had succumbed to his illness. We then closed the abdomen with a nylon suture of just the skin because it was so massively distended, we could not get the fascia closed. We did have to leave some lap pads in there to keep the bowel in the abdomen. I discussed the unfortunate events with the mother and father and of course they were distraught. I had the election assistant come talk to them as well. I left them my card. For any further questions or concerns they had, I told them to please call me. MD MICHAEL Pinedo/ALVARO , 03:23 PM , 03:43 PM [place]
== END 2018-01-02 19:53 | disposition expired | DRG 662 ==
LOC: N03A 23:23
PROVIDERS: ADMIT Surgery Surgical Critical Care; ATTEND Surgery Surgical Critical Care
PROC: 5A2204Z Restoration of Cardiac Rhythm, Single (ICD-10-PCS; 2018-01-02)
PROC: 0BH17EZ Insertion of Endotracheal Airway into Trachea, Via Natural or Artificial Opening (ICD-10-PCS; 2018-01-02)
PROC: 5A1935Z Respiratory Ventilation, Less than 24 Consecutive Hours (ICD-10-PCS; 2018-01-02)
PROC: 5A12012 Performance of Cardiac Output, Single, Manual (ICD-10-PCS; 2018-01-02)
PROC: 30233N1 Transfusion of Nonautologous Red Blood Cells into Peripheral Vein, Percutaneous Approach (ICD-10-PCS; 2018-01-02)
PROC: 30233L1 Transfusion of Nonautologous Fresh Plasma into Peripheral Vein, Percutaneous Approach (ICD-10-PCS; 2018-01-02)
PROC: 30233R1 Transfusion of Nonautologous Platelets into Peripheral Vein, Percutaneous Approach (ICD-10-PCS; 2018-01-02)
PROC: 30233M1 Transfusion of Nonautologous Plasma Cryoprecipitate into Peripheral Vein, Percutaneous Approach (ICD-10-PCS; 2018-01-02)
PROC: B246ZZ4 Ultrasonography of Right and Left Heart, Transesophageal (ICD-10-PCS; 2018-01-02)
PROC: 5A1D70Z Performance of Urinary Filtration, Intermittent, Less than 6 Hours Per Day (ICD-10-PCS; 2018-01-02)
PROC: 0W3R0ZZ Control Bleeding in Genitourinary Tract, Open Approach (ICD-10-PCS; principal; 2018-01-02 18:45)
DX: T83.83XA Hemorrhage due to genitourinary prosthetic devices, implants and grafts, initial encounter (principal); N18.6 End stage renal disease; J96.01 Acute respiratory failure with hypoxia; T86.12 Kidney transplant failure; M79.A3 Nontraumatic compartment syndrome of abdomen; E87.2 Acidosis; E88.89 Other specified metabolic disorders; D62 Acute posthemorrhagic anemia; I12.0 Hypertensive chronic kidney disease with stage 5 chronic kidney disease or end stage renal disease; E87.1 Hypo-osmolality and hyponatremia; I95.9 Hypotension, unspecified; R31.0 Gross hematuria; I46.9 Cardiac arrest, cause unspecified; G40.909 Epilepsy, unspecified, not intractable, without status epilepticus; E83.39 Other disorders of phosphorus metabolism; Y83.0 Surgical operation with transplant of whole organ as the cause of abnormal reaction of the patient, or of later complication, without mention of misadventure at the time of the procedure; Y83.8 Other surgical procedures as the cause of abnormal reaction of the patient, or of later complication, without mention of misadventure at the time of the procedure; Z86.718 Personal history of other venous thrombosis and embolism; Z88.1 Allergy status to other antibiotic agents; Z99.2 Dependence on renal dialysis
CPT/HCPCS: 31500; 36430; 36556; 36600; 71045; 76937; 80048; 80053; 80074; 80076; 82550; 82805; 83735; 84100; 84155; 85014; 85018; 85027; 85384; 85610; 85730; 86850; 86900; 86901; 86920; 86965; 87040; 87641; 90935; 94002; 96374; 96375; C1765; J0171; J0461; J1170; J1580; J1644; J1956; J2250; J2370; P9016; P9017; P9035; P9045; P9047; Q4081